=== PATIENT | male | born 1970 | race Caucasian/White ===

== ENCOUNTER 2016-11-16 09:59 | Inpatient (IN) | payer SELFPAY ==
[~2016-11-16] VITALS: Ht 177.8 cm; Wt 87.4 kg
[2016-11-16] VITALS (12 sets, daily range): BP systolic 116–128; BP diastolic 65–89; PULSE 76–96; RESP 12–16; TEMP 97.6–99.3; O2SAT 91–100
[~2016-11-16 09:59] MED LIST: ALPR0.25 PO; LISI-360 PO; TRAZ100 PO
[2016-11-16] MEDS ORDERED: SODIUM CHLORIDE 0.9% FLUSH 10 ML FLUSH IVF PRN (10:15)
[2016-11-16 10:32] LABS: AUTOMATED NEUTROPHIL # 7.5 TH/MM3 (1.8-7.7); BASOPHIL % 0.2 % (0.0-2.0); EOSINOPHIL # 0.1 TH/MM3 (0-0.4); EOSINOPHIL % 0.5 % (0.0-4.0); HEMO FLAGS DIFF FINAL; LYMPH % 16.3 % (9.0-44.0); LYMPHOCYTE # 1.6 TH/MM3 (1.0-4.8); MEAN CELL VOLUME 95.2 FL (80.0-100.0); MEAN CORPUSCULAR HGB CONC 33.6 % (32.0-36.0); MONO % 6.2 % (0.0-8.0); NEUT % 76.8 % (16.0-70.0); PLATELET COUNT 169 TH/MM3 (150-450); RED BLOOD COUNT 4.31 MIL/MM3 (4.50-5.90); RED CELL DISTRIBUTION WIDTH 13.7 % (11.6-17.2); WHITE BLOOD COUNT 9.8 TH/MM3 (4.0-11.0)
--- NOTE | 2016-11-16 10:53 | RADRPT ---
EXAM DATE/TIME: 11/16/2016 10:32 [place] COMPARISON: CHEST SINGLE AP, July 10, 2013, 12:56. INDICATIONS : Syncope. MEDICAL HISTORY : None. SURGICAL HISTORY : None. ENCOUNTER: Initial ACUITY: 1 day PAIN SCORE: 5/10 LOCATION: Bilateral chest FINDINGS: There is mild atelectasis or scarring at the left lung base. No evidence of effusion. Cardiomediastin al contours are satisfactory. CONCLUSION: Mild left base parenchymal opacity Rajeev Escobar MD on November 16, 2016 at 10:50 Board Certified Radiologist. This report was verified electronically.
[2016-11-16 10:54] LABS: BLOOD GAS BASE EXCESS -1.9 mmol/L (-2-2); BLOOD GAS CARBOXYHEMOGLOBIN 0.9 % (0-4); BLOOD GAS HCO3 24 mmol/L (22-26); BLOOD GAS METHEMOGLOBIN 0.6 % (0-2); BLOOD GAS O2 HGB SATURATION 93 % (90-100); BLOOD GAS OXYGEN CONTENT 18.3 Vol % (12.0-20.0); BLOOD GAS PCO2 56 mmHg (38-42); BLOOD GAS PO2 78 mmHG (61-120); TEMP CORR TO 98.6
[2016-11-16 10:55] LABS: CRITICAL VALUE YES; DRAW SITE RT RADIAL; LITER FLOW 3 L/M; NUMBER OF ARTERIAL PUNCTURES 1; OXYGEN DEVICE NASAL CANNULA; STAT YES
--- NOTE | 2016-11-16 11:04 | PD ---
HPI Chief Complaint: OD/ Ingestion Time Seen by Provider: 10:12 Travel History International Travel<30 days: No Contact w/Intl Traveler<30days: No Traveled to known affect area: No History of Present Illness HPI So 46-year-old man who presents to the emergency department following a reported overdose. By stimulants reports that he snorted what he felt was a Lortab. There were some other powder on the tray as well. He is not sure he got into something else. He states shortly after he slumped over. He became unresponsive. Bystander called 911, and then started CPR. Patient reportedly received about 7 minutes of CPR with bystanders. On EMS arrival patient was apneic but had a pulse. They placed an oral airway and were bagging him. They established an IV and were able to give a total of 2 mg of naloxone, and 0.4 mg increments. Last dose was at approximately 925. Following this he had return to normal consciousness with a GCS of about 14, with improved respirations. Patient reports that he quit smoking about a week or so ago. He reports that his father recently and he's been experimenting with drugs. He has been depressed but denies explicit suicidality. Denies any known medical history. EMS reports that his glucose was a little bit elevated. History Past Medical History Medical History: Denies Significant Hx Social History Alcohol Use: Yes (OCCASIONALY) Tobacco Use: No (STOPPED SMOKING 3 DAYS AGO, LIGHT SMOKER (1 PACK OVER 3 DAYS ) PRIOR) Allergies-Medications (Allergen,Severity, Reaction): Coded Allergies: No Known Allergies (Verified , 11/16/16) Reported Meds & Prescriptions Reported Meds & Active Scripts Active Trazodone Hcl (Trazodone HCl) 100 Mg Tab 100 Mg PO HS Lisinopril 10 Mg Tab 10 Mg PO DAILY Reported Alprazolam 0.25 Mg Tab 0.25 Mg PO TID PRN Review of Systems Except as stated in HPI: all other systems reviewed are Neg Physical Exam Narrative GENERAL: Generally well-appearing 46-year-old man, no acute distress. SKIN: Focused skin assessment warm/dry. HEAD: Atraumatic. Normocephalic. EYES: Pupils equal and round. No scleral icterus. No injection or drainage. ENT: No nasal bleeding or discharge. Mucous membranes pink and moist. NECK: Trachea midline. No JVD. CARDIOVASCULAR: Regular rate and rhythm. No murmur appreciated. RESPIRATORY: Coarse breath sounds bilaterally. Rales in both bases. No wheezing or rhonchi. GASTROINTESTINAL: Abdomen soft, non-tender, nondistended. Hepatic and splenic margins not palpable. MUSCULOSKELETAL: No obvious deformities. No edema. NEUROLOGICAL: Awake and alert. No obvious cranial nerve deficits. Motor grossly within normal limits. Normal speech. PSYCHIATRIC: Appropriate mood and affect; insight and judgment normal. Data Data Last Documented VS Vital Signs Date Time Temp Pulse Resp B/P Pulse Ox O2 Delivery O2 Flow Rate FiO2 11/16/16 10:18 91 Nasal Cannula 3 11/16/16 10:03 98.1 118 11 116/76 Orders Electrocardiogram (11/16/16 10:12) Complete Blood Count With Diff (11/16/16 10:12) Comprehensive Metabolic Panel (11/16/16 10:12) Chest, Single Ap (11/16/16 10:12) Arterial Blood Gas (Abg) (11/16/16 10:12) Iv Access Insert/Monitor (11/16/16 10:12) Ecg Monitoring (11/16/16 10:12) Oximetry (11/16/16 10:12) Sodium Chloride 0.9% Flush (Ns Flush) (11/16/16 10:15) Drug Screen, Random Urine (11/16/16 10:12) Alcohol (Ethanol) (11/16/16 10:12) Salicylates (Aspirin) (11/16/16 10:12) Tylenol (Acetaminophen) (11/16/16 10:12) Troponin I (11/16/16 10:48) Resp Bipap / Cpap Non Invas Vt (11/16/16 ) Cbc No Diff, Includes Plts (11/17/16 05:00) Cbc No Diff, Includes Plts (11/18/16 05:00) Cbc No Diff, Includes Plts (11/19/16 05:00) Cbc No Diff, Includes Plts (11/20/16 05:00) Cbc No Diff, Includes Plts (11/21/16 05:00) Cbc No Diff, Includes Plts (11/22/16 05:00) Cbc No Diff, Includes Plts (11/23/16 05:00) Basic Metabolic Panel (Bmp) (11/17/16 05:00) Basic Metabolic Panel (Bmp) (11/18/16 05:00) Basic Metabolic Panel (Bmp) (11/19/16 05:00) Basic Metabolic Panel (Bmp) (11/20/16 05:00) Basic Metabolic Panel (Bmp) (11/21/16 05:00) Basic Metabolic Panel (Bmp) (11/22/16 05:00) Basic Metabolic Panel (Bmp) (11/23/16 05:00) Magnesium Oxide (Mag-Ox) (11/16/16 12:00) Magnesium Sulfate Inj (Magnesium Sulfate (11/16/16 12:00) Magnesium Sulfate Inj (Magnesium Sulfate (11/16/16 12:00) Potassium Chlor 20 Meq Premix (Kcl 20 Me (11/16/16 12:00) Potassium Chlor 20 Meq Premix (Kcl 20 Me (11/16/16 12:00) Potassium Chlor 40 Meq Premix (Kcl 40 Me (11/16/16 12:00) Potassium Chlor 40 Meq Premix (Kcl 40 Me (11/16/16 12:00) Potassium Phosphate (K-Phos) (11/16/16 12:00) Potassium Phosphate (K-Phos) (11/16/16 12:00) Sodium Phosphate Inj (Sodium Phosphate I (11/16/16 12:00) ^ Medication Admin Instruction (11/16/16 12:00) Notify Dr: Other (11/16/16 12:00) Inpatient Certification (11/16/16 12:00) Resp Ezpap/Pep Therapy (11/16/16 12:00) Resp Acapella/Pep/Chest Vibra (11/16/16 12:00) Resp Incentive Spirometry (11/16/16 12:00) Bedside Glucose JON.AC&HS&03 (11/16/16 12:00) Blood Glucose Goal (Criteria) (11/16/16 12:00) Hypoglycemia 51 - 69 Mg/Dl (11/16/16 12:00) Hypoglycemia 50 Mg/Dl Or < (11/16/16 12:00) Notify Dr: Other (11/16/16 12:00) Dextrose 50% In Kelvin (Vial) Inj (D50w (Vi (11/16/16 12:00) Insulin Human Reg Supp Scale (Novolin R (11/16/16 16:00) Neuro Checks JON.Q1H (11/16/16 12:00) Arterial Blood Gas (Abg) (11/17/16 06:00) ^ Elevate Head Of Bed (11/16/16 12:00) Activity Bed Rest (11/16/16 12:00) Resp Bipap / Cpap Non Invas Vt (11/16/16 ) Albuterol-Ipratropium Neb (Duoneb Neb) (11/16/16 12:00) Labs Laboratory Tests Test 11/16/16 11/16/16 10:15 10:44 White Blood Count 9.8 TH/MM3 Red Blood Count 4.31 MIL/MM3 Hemoglobin 13.8 GM/DL Hematocrit 41.0 % Mean Corpuscular Volume 95.2 FL Mean Corpuscular Hemoglobin 32.0 PG Mean Corpuscular Hemoglobin 33.6 % Concent Red Cell Distribution Width 13.7 % Platelet Count 169 TH/MM3 Mean Platelet Volume 7.2 FL Neutrophils (%) (Auto) 76.8 % Lymphocytes (%) (Auto) 16.3 % Monocytes (%) (Auto) 6.2 % Eosinophils (%) (Auto) 0.5 % Basophils (%) (Auto) 0.2 % Neutrophils # (Auto) 7.5 TH/MM3 Lymphocytes # (Auto) 1.6 TH/MM3 Monocytes # (Auto) 0.6 TH/MM3 Eosinophils # (Auto) 0.1 TH/MM3 Basophils # (Auto) 0.0 TH/MM3 CBC Comment DIFF FINAL Differential Comment Sodium Level 137 MEQ/L Potassium Level 4.1 MEQ/L Chloride Level 100 MEQ/L Carbon Dioxide Level 29.4 MEQ/L Anion Gap 8 MEQ/L Blood Urea Nitrogen 16 MG/DL Creatinine 1.43 MG/DL Estimat Glomerular Filtration 53 ML/MIN Rate Random Glucose 251 MG/DL Calcium Level 8.3 MG/DL Total Bilirubin 0.3 MG/DL Aspartate Amino Transf 45 U/L (AST/SGOT) Alanine Aminotransferase 52 U/L (ALT/SGPT) Alkaline Phosphatase 74 U/L Troponin I LESS THAN 0.02 NG/ML Total Protein 6.9 GM/DL Albumin 4.0 GM/DL Salicylates Level 2.9 MG/DL Acetaminophen Level 4.2 MCG/ML Ethyl Alcohol Level LESS THAN 3 MG/DL Blood Gas Puncture Site RT RADIAL Blood Gas Patient Temperature 98.6 Blood Gas HCO3 24 mmol/L Blood Gas Base Excess -1.9 mmol/L Blood Gas Oxygen Saturation 93 % Arterial Blood pH 7.26 Arterial Blood Partial 56 mmHg Pressure CO2 Arterial Blood Partial 78 mmHG Pressure O2 Arterial Blood Oxygen Content 18.3 Vol % Arterial Blood 0.9 % Carboxyhemoglobin Arterial Blood Methemoglobin 0.6 % Blood Gas Hemoglobin 14.0 G/DL Oxygen Delivery Device NASAL CANNULA Blood Gas Liter Flow 3 L/M [facility] Medical Decision Making Medical Screen Exam Complete: Yes Emergency Medical Condition: Yes Interpretation(s) My review of EKG: Sinus tachycardia rate of 110, normal axis, normal intervals, no definite evidence of acute ischemia. LABS: CBC is unremarkable. CMP is remarkable for mildly elevated creatinine, glucose 251 ABG 7.26/56/78/24, base excess -1.9 Troponin negative Salicylates 2.9 Acetaminophen 4.2 Alcohol negative Chest x-ray: Mild Left base parenchymal opacity. Differential Diagnosis Overdose, aspiration, cardiac arrest, respiratory failure, pneumonia, other Narrative Course Medical decision making INITIAL: 38 year-old man presents emergency department after what appears to be in opiate overdose. He received chest compressions. He is not hypoxic. Possible aspiration, possible pulmonary contusion from chest compressions, we' ll check labs, ABG, reassess. FINAL: Patient with hypercarbic respiratory failure. Is awake and talking. We will place him on BiPAP, admitted to the ICU for close monitoring. Diagnosis Primary Impression: Overdose Additional Impression: Hypercapnic respiratory failure Admitting Information Admitting Physician Requests: Admit Mir Mcgrath MD November 16, 2016 11:04
[2016-11-16 11:15] LABS: ANION GAP 8 MEQ/L (5-15)
[2016-11-16 11:18] LABS: ACETAMINOPHEN 4.2 MCG/ML (10.0-30.0); ALKALINE PHOSPHATASE 74 U/L (45-117); ALT (GPT) 52 U/L (12-78); AST (GOT) 45 U/L (15-37); BICARBONATE 29.4 MEQ/L (21.0-32.0); BLOOD UREA NITROGEN 16 MG/DL (7-18); CHLORIDE 100 MEQ/L (98-107); GLOMERULAR FILTRATION RATE 53 ML/MIN (>89); POTASSIUM 4.1 MEQ/L (3.5-5.1); SODIUM (NA) 137 MEQ/L (136-145); TOTAL BILIRUBIN ADULT 0.3 MG/DL (0.2-1.0)
[2016-11-16] MEDS ORDERED: POTASSIUM CHLOR 40 MEQ PREMIX 100 ML IV PRN ×2 (12:00)
[2016-11-16] MEDS ORDERED: RESP: ALBUTEROL 2.5 MG/IPRATROPIUM 0.5 MG NEB (PRN) INH (12:00)
[2016-11-16] MEDS ORDERED: POTASSIUM PHOSPHATE MONOBASIC 500 MG TAB PO/TUBE PRN (12:00)
[2016-11-16] MEDS ORDERED: POTASSIUM CHLOR 20 MEQ PREMIX 100 ML IV PRN ×2 (12:00)
[2016-11-16] MEDS ORDERED: MAGNESIUM OXIDE 400 MG TAB PO PRN (12:00)
[2016-11-16] MEDS ORDERED: MAGNESIUM SULFATE INJ 2 GM in SODIUM CHLORIDE 0.9% INJ 96 ML IV PRN (12:00)
[2016-11-16] MEDS ORDERED: POTASSIUM PHOSPHATE MONOBASIC 500 MG TAB PO PRN (12:00)
[2016-11-16] MEDS ORDERED: MAGNESIUM SULFATE INJ 4 GM in SODIUM CHLORIDE 0.9% INJ 92 ML IV PRN (12:00)
[2016-11-16] MEDS ORDERED: DEXTROSE 50% IN WATER 50 ML VIAL(D50) IV PUSH PRN (12:00)
[2016-11-16] MEDS ORDERED: SODIUM PHOSPHATE INJ 30 MMOL in SODIUM CHLOR 0.9% 250 ML INJ 240 ML IV PRN (12:00)
--- NOTE | 2016-11-16 13:05 | HHI.HP ---
HPI Service Critical Care Medicine Primary Care Physician No Primary Care Physician Admission Diagnosis overdose, hypercarbic respiratory failure Diagnosis: Travel History International Travel<30 Days: No Contact w/Intl Traveler <30 Da: No Traveled to Known Affected Are: No Past Family Social History Allergies: Coded Allergies: No Known Allergies (Verified , 11/16/16) Physical Exam Vital Signs Vital Signs Date Time Temp Pulse Resp B/P Pulse Ox O2 Delivery O2 Flow Rate FiO2 11/16/16 11:04 100 50 11/16/16 10:18 91 Nasal Cannula 3 11/16/16 10:14 91 Nasal Cannula 3 11/16/16 10:03 98.1 118 11 116/76 91 Laboratory Laboratory Tests Test 11/16/16 11/16/16 10:15 10:44 White Blood Count 9.8 Red Blood Count 4.31 Hemoglobin 13.8 Hematocrit 41.0 Mean Corpuscular Volume 95.2 Mean Corpuscular Hemoglobin 32.0 Mean Corpuscular Hemoglobin 33.6 Concent Red Cell Distribution Width 13.7 Platelet Count 169 Mean Platelet Volume 7.2 Neutrophils (%) (Auto) 76.8 Lymphocytes (%) (Auto) 16.3 Monocytes (%) (Auto) 6.2 Eosinophils (%) (Auto) 0.5 Basophils (%) (Auto) 0.2 Neutrophils # (Auto) 7.5 Lymphocytes # (Auto) 1.6 Monocytes # (Auto) 0.6 Eosinophils # (Auto) 0.1 Basophils # (Auto) 0.0 CBC Comment DIFF FINAL Differential Comment Sodium Level 137 Potassium Level 4.1 Chloride Level 100 Carbon Dioxide Level 29.4 Anion Gap 8 Blood Urea Nitrogen 16 Creatinine 1.43 Estimat Glomerular Filtration 53 Rate Random Glucose 251 Calcium Level 8.3 Total Bilirubin 0.3 Aspartate Amino Transf 45 (AST/SGOT) Alanine Aminotransferase 52 (ALT/SGPT) Alkaline Phosphatase 74 Troponin I LESS THAN 0.02 Total Protein 6.9 Albumin 4.0 Salicylates Level 2.9 Acetaminophen Level 4.2 Ethyl Alcohol Level LESS THAN 3 Blood Gas Puncture Site RT RADIAL Blood Gas Patient Temperature 98.6 Blood Gas HCO3 24 Blood Gas Base Excess -1.9 Blood Gas Oxygen Saturation 93 Arterial Blood pH 7.26 Arterial Blood Partial 56 Pressure CO2 Arterial Blood Partial 78 Pressure O2 Arterial Blood Oxygen Content 18.3 Arterial Blood 0.9 Carboxyhemoglobin Arterial Blood Methemoglobin 0.6 Blood Gas Hemoglobin 14.0 Oxygen Delivery Device NASAL CANNULA Blood Gas Liter Flow 3 Result Diagram: 11/16/16 1015 11/16/16 1015 Jose G Mota MD November 16, 2016 1:05 pm Gay Duffy DO November 16, 2016 3:27 pm
[2016-11-16 13:14] LABS: BLOOD GAS BASE EXCESS -0.7 mmol/L (-2-2); BLOOD GAS CARBOXYHEMOGLOBIN 0.6 % (0-4); BLOOD GAS HCO3 25 mmol/L (22-26); BLOOD GAS METHEMOGLOBIN 0.4 % (0-2); BLOOD GAS O2 HGB SATURATION 98 % (90-100); BLOOD GAS OXYGEN CONTENT 19.8 Vol % (12.0-20.0); BLOOD GAS PCO2 58 mmHg (38-42); BLOOD GAS PO2 142 mmHG (61-120); BLOOD GAS TOTAL HGB 14.2 G/DL (12.0-16.0); CRITICAL VALUE YES; DRAW SITE RT RADIAL; FIO2 50 %; NUMBER OF ARTERIAL PUNCTURES 1; OXYGEN DEVICE BIPAP; STAT YES; TEMP CORR TO 98.6; VENT SETTINGS IPAP10/EPAP5
--- NOTE | 2016-11-16 15:28 | HHI.HP ---
[facility] No Primary Care Physician Admission Diagnosis overdose, hypercarbic respiratory failure Diagnoses: Chief Complaint: Overdose. Travel History International Travel<30 Days: No Contact w/Intl Traveler <30 Da: No Traveled to Known Affected Are: No History of Present Illness Mr. Gordon is a pleasant 46 year old male with no significant medical history who was brought to the ED due to suspected overdose. He was having some headache and upon mentioning to a friend, his friend offered some crushed Lortab. He snorted this crushed medication and next thing he remembers is waking up in the Ambulance. Per ED report, patient became unresponsive, CPR was performed. EMS found patient apneic with a pulse. An oral airway was placed and patient was bagged. Patient received 2 mg of Naloxone in 0.4mg increments. He responded well with Naloxone. Patient denies any chronic illicit drug habits. He is very remorseful for what he did. He denies being suicidal. In the ED, ABG showed PCO2 56-58. Patient was placed on BiPAP. [facility] was initially contacted for admission. I discussed with Dr. Mota who indicates that patient was not wearing BiPAP properly and his O2 saturation was well within normal range. Dr. Mota also indicated that at this point, patient does not need an ICU admission. Based on his input and chart review, I agreed to admit this patient to the hospitalist service. At the time of this interview, patient appears to be in hemodynamically stable condition. He complains of anterior chest wall pain - likely from chest compressions. Review of Systems Except as stated in HPI: all other systems reviewed are Neg Past Family Social History Past Medical History No significant medical history. Past Surgical History Right middle finger surgery in 1983. Reported Medications Does not take any medications on a regular basis. Allergies: Coded Allergies: No Known Allergies (Verified , 11/16/16) Family History Mother from [place]. Father from [place] Social History Patient quit smoking about 9 days ago. Drinks alcohol socially. Denies using IV drugs. Denies using illicit drugs. Physical Exam Vital Signs Vital Signs Date Time Temp Pulse Resp B/P Pulse Ox O2 Delivery O2 Flow Rate FiO2 11/16/16 13:58 100 50 11/16/16 11:04 100 50 11/16/16 10:18 91 Nasal Cannula 3 11/16/16 10:14 91 Nasal Cannula 3 11/16/16 10:03 98.1 118 11 116/76 91 Physical Exam GENERAL: This is a well-nourished, well-developed patient, in no apparent distress. SKIN: No rashes, ecchymoses or lesions. Warm and dry. HEAD: Atraumatic. Normocephalic. No temporal or scalp tenderness. EYES: Pupils equal round and reactive. No injection or drainage. ENT: Nose without bleeding, purulent drainage or septal hematoma. Airway patent. NECK: Trachea midline. No lymphadenopathy. Supple, nontender, no meningeal signs. CARDIOVASCULAR: Regular rate and rhythm without murmurs, gallops, or rubs. No JVD. Anterior chest wall tenderness on palpation. RESPIRATORY: Clear to auscultation. Breath sounds equal bilaterally. No wheezes , rales, or rhonchi. GASTROINTESTINAL: Abdomen soft, non-tender, nondistended. No guarding. MUSCULOSKELETAL: Extremities without clubbing, cyanosis, or edema. NEUROLOGICAL: Awake and alert. Cranial nerves II through XII intact. No focal neurological deficits. Normal speech. Laboratory Laboratory Tests Test 11/16/16 11/16/16 11/16/16 10:15 10:44 13:03 White Blood Count 9.8 Red Blood Count 4.31 Hemoglobin 13.8 Hematocrit 41.0 Mean Corpuscular Volume 95.2 Mean Corpuscular Hemoglobin 32.0 Mean Corpuscular Hemoglobin 33.6 Concent Red Cell Distribution Width 13.7 Platelet Count 169 Mean Platelet Volume 7.2 Neutrophils (%) (Auto) 76.8 Lymphocytes (%) (Auto) 16.3 Monocytes (%) (Auto) 6.2 Eosinophils (%) (Auto) 0.5 Basophils (%) (Auto) 0.2 Neutrophils # (Auto) 7.5 Lymphocytes # (Auto) 1.6 Monocytes # (Auto) 0.6 Eosinophils # (Auto) 0.1 Basophils # (Auto) 0.0 CBC Comment DIFF FINAL Differential Comment Sodium Level 137 Potassium Level 4.1 Chloride Level 100 Carbon Dioxide Level 29.4 Anion Gap 8 Blood Urea Nitrogen 16 Creatinine 1.43 Estimat Glomerular Filtration 53 Rate Random Glucose 251 Calcium Level 8.3 Total Bilirubin 0.3 Aspartate Amino Transf 45 (AST/SGOT) Alanine Aminotransferase 52 (ALT/SGPT) Alkaline Phosphatase 74 Troponin I LESS THAN 0.02 Total Protein 6.9 Albumin 4.0 Salicylates Level 2.9 Acetaminophen Level 4.2 Ethyl Alcohol Level LESS THAN 3 Blood Gas Puncture Site RT RADIAL RT RADIAL Blood Gas Patient Temperature 98.6 98.6 Blood Gas HCO3 24 25 Blood Gas Base Excess -1.9 -0.7 Blood Gas Oxygen Saturation 93 98 Arterial Blood pH 7.26 7.26 Arterial Blood Partial 56 58 Pressure CO2 Arterial Blood Partial 78 142 Pressure O2 Arterial Blood Oxygen Content 18.3 19.8 Arterial Blood 0.9 0.6 Carboxyhemoglobin Arterial Blood Methemoglobin 0.6 0.4 Blood Gas Hemoglobin 14.0 14.2 Oxygen Delivery Device NASAL CANNULA BIPAP Blood Gas Liter Flow 3 Blood Gas Ventilator Setting [id number] Blood Gas Inspired Oxygen 50 Result Diagram: 11/16/16 1015 11/16/16 1015 Imaging Last Impressions Chest X-Ray 11/16/16 1012 Signed Impressions: Service Date/Time: Wednesday, November 16, 2016 10:32 - CONCLUSION: Mild left base parenchymal opacity Rajeev Escobar MD Assessment and Plan Problem List: (1) Hypercapnic respiratory failure ICD Code: J96.92 Status: Acute (2) Overdose ICD Code: T50.901A Status: Acute (3) Insomnia ICD Code: G47.00 Status: Acute Assessment and Plan Mr. Gordon is a pleasant 46 year old male with no significant medical history who was brought to the ED after suspected overdose. He was given Naloxone by EMS. Patient's ABG showed hypercapnic respiratory failure. He required BiPAP briefly. - Acute hypercapnic respiratory failure - CXR reviewed by me. No infiltrates. Clinically no suspicion of pneumonia. - Atelectasis is a possibility. Will start incentive spirometry. - Resolved. Patient is currently on Nasal cannula. - Wean off supplemental O2 to keep O2 sat > 90%. - Patient will likely be fine without any supplemental O2. - IF clinically indicated, we will repeat ABG. - Discussed with [facility], Dr. Mota. - Anterior chest wall tenderness - Likely from CPR. - Will start patient on Toradol IV and may consider muscle relaxer such as Baclofen. - Probable Opioid overdose. - Responded well with Naloxone. - Counselled patient regarding opioid and other illicit drugs. Patient is remorseful. - Insomnia - Will start patient on Restoril. - Tobacco abuse - Quit smoking about 9 days ago. Full code. Ambulation. Discharge plan: Likely discharge patient on 11/17/2016. Physician Certification 2 Midnight Certification Type: Admission for Inpatient Services Order for Inpatient Services The services are ordered in accordance with Medicare regulations or non- Medicare payer requirements, as applicable. In the case of services not specified as inpatient-only, they are appropriately provided as inpatient services in accordance with the 2-midnight benchmark. Estimated LOS (days): 2 days is the estimated time the patient will need to remain in the hospital, assuming treatment plan goals are met and no additional complications. Post-Hospital Plan: Home Notes: If clinically improved, patient may be discharged sooner. Gay Duffy DO November 16, 2016 15:27
[2016-11-16] MEDS ORDERED: INSULIN NovoLIN REGULAR SUPPLEMENTAL SCALE SQ SCH (16:00)
[2016-11-16 17:10] LABS: AMPHETAMINE, URINE NEG (NEG); BARBITURATES, URINE NEG (NEG); COCAINE, URINE NEG (NEG)
[2016-11-16] MEDS ORDERED: TEMAZEPAM 15 MG CAP PO PRN (18:15)
[2016-11-16] MEDS ORDERED: ACETAMINOPHEN 325 MG TAB PO PRN (18:15)
[2016-11-16] MEDS: KETOROLAC TROMETHAMINE 30 MG/ML (IVP) VIAL IV PUSH PRN (20:29)
[2016-11-17] VITALS (10 sets, daily range): BP systolic 107–111; BP diastolic 73–74; PULSE 61–86; RESP 16; TEMP 97.8–98.6; O2SAT 96–100
[2016-11-17] MEDS: KETOROLAC TROMETHAMINE 30 MG/ML (IVP) VIAL IV PUSH PRN (05:56)
[2016-11-17 06:56] LABS: BICARBONATE 31.5 MEQ/L (21.0-32.0); POTASSIUM 4.4 MEQ/L (3.5-5.1)
[2016-11-17] MEDS ORDERED: NAPR250T PO (09:14)
[2016-11-17] MEDS ORDERED: OMEP20TA PO (09:14)
--- NOTE | 2016-11-17 09:19 | HHI.PR ---
Subjective Remarks Follow-up for opioid overdose. Patient is currently doing well. He reports improvement of his anterior chest wall tenderness. Denies any shortness of breath, cough, fever or chills. Was to go home. Objective Vitals Vital Signs Date Time Temp Pulse Resp B/P Pulse Ox O2 Delivery O2 Flow Rate FiO2 11/17/16 06:00 78 11/17/16 05:00 74 11/17/16 04:00 66 11/17/16 03:00 63 11/17/16 03:00 98.6 83 16 107/73 98 11/17/16 02:00 72 11/17/16 01:35 98 Nasal Cannula 2.00 11/17/16 01:00 86 11/17/16 00:00 86 11/16/16 23:00 99.1 83 12 116/65 98 11/16/16 23:00 96 11/16/16 22:00 76 11/16/16 21:00 96 11/16/16 20:00 90 11/16/16 19:00 96 11/16/16 19:00 99.3 86 16 128/80 96 11/16/16 18:23 88 11/16/16 17:01 80 11/16/16 17:00 97.6 76 16 126/89 96 11/16/16 13:58 100 50 11/16/16 11:04 100 50 11/16/16 10:18 91 Nasal Cannula 3 11/16/16 10:14 91 Nasal Cannula 3 11/16/16 10:03 98.1 118 11 116/76 91 I/O 11/16/16 11/16/16 11/16/16 11/17/16 11/17/16 11/17/16 07:00 15:00 23:00 07:00 15:00 23:00 Intake Total 420 ml 480 ml Output Total 250 ml 580 ml Balance 170 ml -100 ml Intake Oral 420 ml 480 ml Output Urine Total 250 ml 580 ml Result Diagram: 11/16/16 1015 11/17/16 0553 Imaging Last Impressions Chest X-Ray 11/16/16 1012 Signed Impressions: Service Date/Time: Wednesday, November 16, 2016 10:32 - CONCLUSION: Mild left base parenchymal opacity Rajeev Escobar MD Objective Remarks GENERAL: Alert, oriented 3, NAD SKIN: Warm and dry. HEAD: Normocephalic. EYES: No scleral icterus. No injection or drainage. NECK: Supple, trachea midline. No JVD or lymphadenopathy. CARDIOVASCULAR: Regular rate and rhythm without murmurs, gallops, or rubs. RESPIRATORY: Breath sounds equal bilaterally. No accessory muscle use. GASTROINTESTINAL: Abdomen soft, mild tenderness on anterior chest wall palpation , nondistended. MUSCULOSKELETAL: No cyanosis, or edema. BACK: Nontender without obvious deformity. No CVA tenderness. Procedures None A/P Problem List: (1) Hypercapnic respiratory failure ICD Code: J96.92 Status: Acute (2) Overdose ICD Code: T50.901A Status: Acute (3) Insomnia ICD Code: G47.00 Status: Acute Assessment and Plan Mr. Gordon is a pleasant 46 year old male with no significant medical history who was brought to the ED after suspected overdose. He was given Naloxone by EMS. Patient's ABG showed hypercapnic respiratory failure. He required BiPAP briefly. - Acute hypercapnic respiratory failure - CXR reviewed by me. No infiltrates. Clinically no suspicion of pneumonia. - Atelectasis is a possibility. Continue incentive spirometry. - Resolved. Patient is currently on room air -Discontinue supplemental oxygen. Patient is saturating well in room air. - Anterior chest wall tenderness - Likely from CPR. -Patient received Toradol in the hospital. He can continue naproxen at home. Patient was advised to take omeprazole or other PPI while he is on naproxen. - Probable Opioid overdose. - Responded well with Naloxone. - Counselled patient regarding opioid and other illicit drugs. Patient is remorseful. - Insomnia -continue trazodone on discharge. - Tobacco abuse - Quit smoking about 9 days ago. Full code. Ambulation. Discharge patient to home Condition on discharge: Improved Regular Diet as tolerated Ad Farzana activity Rx written: - Naproxen 250 mg by mouth twice a day #28 - Omeprazole 20 mg daily #30 Follow-up with primary care physician within one week. Gay Duffy DO November 17, 2016 9:18 am
--- NOTE | 2016-11-17 10:17 | EKG ---
Date Performed: 11/16/2016 Time Performed: 10:09:53 PTAGE: 46 years EKG: SINUS TACHYCARDIA ABNORMAL RHYTHM ECG PREVIOUS TRACING : 07/10/2013 18.47 DOCTOR: Mir Alexandra Interpretating Date/Time 11/17/2016 10:15:05
== END 2016-11-17 10:15 | disposition home or self-care (01) | DRG 917 ==
LOC: NEPE 09:59 → NEDA 12:08 → HCIS 16:57
PROVIDERS: ADMIT Internal Medicine Critical Care Medicine; ATTEND Hospitalist
DX: T40.2X1A Poisoning by other opioids, accidental (unintentional), initial encounter (principal); J96.02 Acute respiratory failure with hypercapnia; F17.210 Nicotine dependence, cigarettes, uncomplicated; G47.00 Insomnia, unspecified; Y92.89 Other specified places as the place of occurrence of the external cause
CPT/HCPCS: 36600; 71010; 80048; 80053; 80307; 82805; 82948; 84484; 85025; 93005; 94002; J1885